=== PATIENT | female | born 1960 | race Caucasian/White ===

== ENCOUNTER → 2016-06-20 | Outpatient (CLI) | payer OTHER, MEDICARE ==
[~2016-06-20] MED LIST: ACETAMINOPHEN650 M3 PO; AMOXICILLIN PO; AURODEX EAR DRO15 ML OT; BACTRIM DS TABL1 TA1 PO; BACTRIM DS TABL1 TAB PO; BENICAR PO; BIRTH CONTROL PILLS; CYMBALTA PO; DIAZEPAM; DIAZEPAM PO; ETHINYL ESTRADIOL; HYDROCODON-ACE1 EAC7 PO; IBUPROFEN IB100 MG PO; KEFLEX500 MG PO; LEVONORGESTREL; LORTAB 10/500 T1 TAB; LORTAB 10/500 T1 TAB PO; LYRICA; MICARDIS PO; OPANA; OPANA ER10 MG PO; OPANA ER30 MG PO; OXYCODONE HCL20 M1 PO; OXYCONTIN40 MG PO; PENICILLIN PO; TYLOX 5/500 CAP1 CAP PO; VALIUM10 MG PO; XANAX1 MG PO
--- NOTE | ~2016-06-20 | CR181 ---
[facility] A Service [facility] RADIOLOGY TEXT RESULTS PATIENT: NATHEN DIAZ LOCATION: [facility] : 58 UNIT #: [id number] AGE: [address]: Jeff Arora MD SEX: F ORDER DR: [id number] [address] [address] [id number] O MR#: [id number] Acc #: [id number] NAME: NATHEN DIAZ : 1960 SEX: F STUDY DATE/TIME: 06/20/2016 13:08 UNIT: [facility] ROOM: STUDY DESCRIPTION: CR Lumbar Spine 2 or 3 Views Attending Physician: Jeff Arora M.D. Referring Physician: Jeff Arora M.D. Ordering Physician: Jeff Arora M.D. Primary Care Physician: No Primary Care Physician MEDICAL IMAGING REPORT This report is preliminary unless electronic signature is present. EXAM Lumbar series 06/20/2016 INDICATIONS 55-year-old female with degenerative disc disease. Pain symptoms 23 years in the lumbar spine. No known injury. History of cervical spine surgery and the year 1999. TECHNIQUE 3 views of the lumbar spine. COMPARISON 10/06/2015 FINDINGS Minimal antegrade listhesis of L4 on L5, grade 1 in degree, is unchanged. Vertebral body heights are preserved. There is degenerative disc disease at L5-S1. There is moderately severe to severe facet arthropathy at L4-5 and L5-S1. No acute fracture. IMPRESSION Degenerative changes in the lower lumbar spine primarily related to facet arthropathy and, to a lesser extent, degenerative disc disease. Stable antegrade listhesis of L4 on L5; no acute fracture. Dictated by... Ata Galan M.D. THIS IS AN ELECTRONICALLY VERIFIED REPORT [facility] A Service [facility] RADIOLOGY TEXT RESULTS PATIENT: NATHEN DIAZ LOCATION: [facility] : 58 UNIT #: [id number] AGE: [address]: Jeff Arora MD SEX: F ORDER DR: Ata Galan M.D. at 06/20/2016 7:17 PM JARED/leena TD: 06/20/2016 18:11 JOB #: [id number] MEDICAL IMAGING REPORT Page 1 of 1
--- NOTE | ~2016-06-20 | CR58 ---
[facility] A Service of [facility] RADIOLOGY TEXT RESULTS PATIENT: NATHEN DIAZ LOCATION: [facility] : 58 UNIT #: [id number] AGE: [address]: Jeff Arora MD SEX: F ORDER DR: [id number] [address] [address] [id number] O MR#: [id number] Acc #: [id number] NAME: NATHEN DIAZ : 1960 SEX: F STUDY DATE/TIME: 06/20/2016 13:08 UNIT: [facility] ROOM: STUDY DESCRIPTION: CR Cervical Spine 2 or 3 Views Attending Physician: Jeff Arora M.D. Referring Physician: Jeff Arora M.D. Ordering Physician: Jeff Arora M.D. Primary Care Physician: Primary Care Physician No MEDICAL IMAGING REPORT This report is preliminary unless electronic signature is present. EXAM Cervical spine 3 views 06/20/2016 HISTORY Neck pain status post cervical spine fusion. Pain for 23 years. No recent injury. Degenerative disc disease cervical spine. FINDINGS 3 views of the cervical spine demonstrate no fracture. There is 3 mm retrolisthesis of C4 on C5. The remainder of the posterior vertebral body line is intact. Anterior fusion with surgical plate and screws at the C5-6 level. The surgical hardware is intact. There is degenerative change involving the articular facets. Degenerative change with moderate disc space narrowing at C3-4 and C4-5 with mild narrowing at C6-7. Anterior and posterior osteophytes from C3-C7. IMPRESSION Degenerative and postsurgical changes in the cervical spine. No acute abnormality. Dictated by... Kapil Singh M.D. THIS IS AN ELECTRONICALLY VERIFIED REPORT Kapil Singh M.D. at 06/21/2016 8:31 AM KRT/to TD: 06/20/2016 19:28 JOB #: [id number] MEDICAL IMAGING REPORT Page 1 of 1
== END | disposition home or self-care (01) ==
LOC: SRAD 12:58
DX: M51.36 Other intervertebral disc degeneration, lumbar region (principal); M54.9 Dorsalgia, unspecified; M47.816 Spondylosis without myelopathy or radiculopathy, lumbar region; M46.96 Unspecified inflammatory spondylopathy, lumbar region; M43.16 Spondylolisthesis, lumbar region; M50.30 Other cervical disc degeneration, unspecified cervical region; Z98.890 Other specified postprocedural states
CPT/HCPCS: 72040; 72100